=== PATIENT | male | born 1995 ===

== ENCOUNTER 2016-12-09 17:58 | Emergency (ER) | payer OTHER ==
[2016-12-09 21:20] VITALS: BP 148/94
[2016-12-09] MEDS ORDERED: CEPHALEXIN MONOHYDRATE 250 MG CAPSULE PO SCH (21:30)
--- NOTE | 2016-12-09 21:42 | ERNOTE ---
Head Injury HPI - Narrative Date of Service: 12/09/16 - General Injury to: face Time Seen by Provider: 12/09/16 21:20 Source: patient - Immun/Allergies/Home Medications Immunization: IMMUNIZATION HX History of Influenza Vaccine No Allergies/Adverse Reactions: Allergies Allergy/AdvReac Type Severity Reaction Status Date / Time No Known Allergies Allergy Unverified 12/09/16 18:13 Home Medications: HOME MEDICATIONS Cephalexin [Keflex] 500 mg PO QID #40 capsule 12/09/16 [Last Taken Unknown] - History of Present Illness Narrative: has had swelling on right side of face for last 2-3 days. No injury. Somewhat painful initially but pain has resolved. No injury. No drainage. No prior similar problem. Hx of facial acne. Teeth are in good shape. Occurred: other - 2-3 days Severity: moderate Head Injury Location: facial - right submandibular region Associated Symptoms: Reports: denies symptoms. Denies: cough, shortness of breath, fever/chills, diaphoresis, headaches Review of Systems - Review of Systems Constitutional: Present: no symptoms reported EYE: Present: no symptoms reported ENT: Present: other - pain under right jaw, hurts to move neck. Absent: ear pain, ear discharge, nasal drainage Respiratory: Present: no symptoms reported, other - smoker Gastrointestinal/Abdominal: Present: no symptoms reported Skin: Present: no symptoms reported - Patient's Past Medical History Patient History - Medical: No pertinent hx Patient History - Cancer: No Hx of Cancer Patient History - Surgical Procedures: No surgical history - Social History Smoking Status: Current every day smoker Have you smoked in the past 12 months: Yes Do you dip or chew tobacco: No Alcohol Use: occasionally Drug Use: none Physical Exam - Physical Exam General Appearance: Present: wd/wn, alert, mild distress Eye Exam: Normal inspection: bilateral, PERRL: bilateral, EOMI: bilateral Ears, Nose, Throat: Present: hearing grossly normal, normal pharynx. Absent: abnormal TM (R), abnormal TM (L), cerumen impaction, nasal congestion, sinus pain/drainage, pharyngeal erythema, pharyngeal swelling, dry mucous membranes Neck: Present: lymphadenopathy (R) - submandibular, other - right submandibular swelling, no fluctuance. Respiratory: Present: no respiratory distress, normal breath sounds Cardiovascular/Chest: Present: regular rate, rhythm, no murmur Skin Exam: Present: other - old acne scars face, bearded ED Progress - Vital Signs Patient's Vital Signs:: I have reviewed the patient's vital signs. Vital Signs: Vital Signs 12/09/16 12/09/16 18:11 21:19 Temperature 37.0 C Pulse Rate 84 85 Respiratory 14 16 Rate Blood Pressure 166/99 148/94 O2 Sat by Pulse 97 98 Oximetry - Progress/Reassessment Chief Complaint: Neck Pain/Injury Plan - Plan Plan: Cephalexin, home, rest. Wants work excuse for tomorrow. Departure Clinical Impression: Mass of right submandibular region - Departure Disposition: Home self-care Condition: Good Instructions: Lymphadenopathy, Form - Excuse from Work, School, or Physical Activity Prescriptions: Cephalexin [Keflex] 500 mg PO QID #40 capsule
[2016-12-09] MEDS ORDERED: CEPHALEXIN MONOHYDRATE 250 MG CAPSULE ONE (21:44)
== END 2016-12-09 21:52 | disposition home or self-care (01) ==
LOC: ER 17:58
DX: R22.0 Localized swelling, mass and lump, head (principal); F17.210 Nicotine dependence, cigarettes, uncomplicated